=== PATIENT | female | born 1995 | race Caucasian/White ===

== ENCOUNTER 2022-02-23 02:38 | Emergency (ER) | payer BC ==
[~2022-02-23] VITALS: Ht 170.2 cm; Wt 72.6 kg
--- NOTE | 2022-02-23 03:35 | NUR ---
MARY C/O HITTING NOSE ON GLASS DOOR. PATIENT IS AAOX4. ABLE TO MAKE NEEDS KNOWN. PLACED COMFORTABLY IN BED. VITALS CHECKED.
--- NOTE | 2022-02-23 03:45 | NUR ---
SEEN BY DR BUSTOS AT BEDSIDE
--- NOTE | 2022-02-23 04:39 | NUR ---
WAIVER SIGNED BY PATIENT THAT SHE IS NOT
--- NOTE | 2022-02-23 04:50 | NUR ---
BROUGHT TO CT DEPT
[2022-02-23 06:17] VITALS: BP 119/71
--- NOTE | 2022-02-23 06:17 | NUR ---
Patient discharged to home in stable condition. Written and verbal after care instructions given. Patient verbalizes understanding of instruction.
== END 2022-02-23 06:18 | disposition home or self-care (01) ==
LOC: ER 02:41
DX: S02.2XXA Fracture of nasal bones, initial encounter for closed fracture (principal); Z60.2 Problems related to living alone; W22.8XXA Striking against or struck by other objects, initial encounter; Y93.89 Activity, other specified; Y92.89 Other specified places as the place of occurrence of the external cause; Y99.8 Other external cause status
CPT/HCPCS: 70486-TC

== ENCOUNTER 2022-04-17 11:14 | Emergency (ER) | payer BC ==
[~2022-04-17] VITALS: Ht 165.1 cm; Wt 81.6 kg
--- NOTE | 2022-04-17 12:52 | NUR ---
AT BED SIDE FOR EVAL
[2022-04-17] MEDS ORDERED: CYCLOBENZAPRINE 10 MG TABLET PO ONE (13:00)
[2022-04-17] MEDS ORDERED: IBUPROFEN 400 MG TABLET PO ONE (13:00)
[2022-04-17] MEDS ORDERED: CYCLOBENZAPRINE 10 MG TABLET ONE (13:14)
[2022-04-17] MEDS ORDERED: IBUPROFEN 400 MG TABLET ONE (13:14)
[2022-04-17] MEDS ORDERED: CYCL5TAB PO (13:20)
[2022-04-17] MEDS ORDERED: IBUP-1955 PO (13:20)
[2022-04-17 13:44] VITALS: BP 121/65
--- NOTE | 2022-04-17 13:45 | NUR ---
Patient discharged to home in stable condition, ambulating by self. Written and verbal after care instructions given. Patient verbalizes understanding of instruction.
== END 2022-04-17 13:45 | disposition home or self-care (01) ==
LOC: ER 11:22
DX: S09.90XA Unspecified injury of head, initial encounter (principal); R51.9 Headache, unspecified; V49.9XXA Car occupant (driver) (passenger) injured in unspecified traffic accident, initial encounter; Y93.89 Activity, other specified; Y92.89 Other specified places as the place of occurrence of the external cause; Y99.8 Other external cause status